=== PATIENT | male | born 1955 | race Caucasian/White ===

== ENCOUNTER → 2017-05-05 19:07 | Outpatient (CLI) | payer OTHER, SELFPAY ==
[2017-05-05 19:37] LABS: Ferritin 212 ng/mL (26-388); Iron 103 ug/dL (65-175)
== END ==
PROVIDERS: Family Provider Family Medicine; PCP Family Medicine; Visit Provider Family Medicine
DX: D64.9 Anemia, unspecified (principal)
CPT/HCPCS: 82728; 83540

== ENCOUNTER → 2017-09-11 09:47 | Outpatient (CLI) | payer OTHER, SELFPAY ==
--- NOTE | 2017-09-11 09:56 | RAD_ITS ---
STUDY: X-RAY - RIGHT ANKLE REASON FOR EXAM: Male, 62 years old. Pain TECHNIQUE: Three view(s) of the ankle were obtained. COMPARISON: None. FINDINGS: Bones: There are no acute osseous abnormalities. Joints: The visualized joints are unremarkable. Soft tissues: There is minimal soft tissue swelling medially. There is a small round calcification in the soft tissues adjacent to the medial malleolus. RAD/Ankle min 3 Views IMPRESSION: No acute abnormalities are seen. There is a small round calcification in the soft tissues between the medial malleolus and talus. If this represents a small loose body in the joint, this can cause pain. Electronically Signed: Zoe Lundberg MD at 20:07 EDT Tel Direct: [phone], Service support ,
== END ==
PROVIDERS: Family Provider Family Medicine; PCP Family Medicine; Visit Provider Family Medicine
DX: M25.571 Pain in right ankle and joints of right foot (principal)
CPT/HCPCS: 73610

== ENCOUNTER → 2017-10-08 06:39 | Outpatient (CLI) | payer OTHER, SELFPAY ==
--- NOTE | 2017-10-08 18:22 | STRESSREP_ITS ---
Stress Test Report Exercise myocardial perfusion stress test. 62-year-old man with a history of chest pain. Medications: Aspirin, atenolol, clopidogrel, lisinopril, metformin. Status post coronary artery stenting 2011. Stress protocol: Resting EKG demonstrates sinus bradycardia with a rate of 57 bpm normal intervals and noted resting blood pressure is 120/74 mmHg. The patient exercised according to regular Jorge protocol for a total duration of 9 minutes. Patient completed stage III of the Jorge protocol. The maximum heart rate attained was 141 bpm which was 89% of maximum predicted heart rate the maximum workload was 10.1 metabolic equivalents. At rest there were no ST or T- wave changes noted suggest ischemia peak exercise upsloping ST changes only were noted with no meet the criteria for ischemia. No clinical angina was noted. Resting blood pressure is 120/74 with a peak blood pressure 184/70 mmHg rate pressure product was 25,900. Myocardial perfusion protocol. 14.7 mCi of technetium 99m sestamibi was injected at rest. The patient exercised according to regular Jorge protocol for 9 minutes attaining 89% of maximum predicted heart rate and a workload of 10.1 metabolic equivalents. At peak exercise 44.6 mCi of technetium 99m sestamibi was injected stress images were obtained stress and rest images were reconstructed and compared in the short axis vertical long and horizontal long axis. Gated images were also obtained pre- Perfusion SPECT analysis: Review of the stress images demonstrate normal uptake of tracer noted in all areas of the myocardium. The resting images similarly demonstrate normal uptake of tracer noted in all areas of the myocardium. No areas of reversibility are noted suggest ischemia and no previous infarct is noted. Gated SPECT analysis: The gated ejection fraction is 59%. Conclusion: Normal exercise myocardial perfusion stress test at a high workload. No clinical angina noted Preserved ejection fraction.
== END ==
PROVIDERS: Family Provider Family Medicine; PCP Family Medicine; Visit Provider Nurse Practitioner Family
DX: R07.9 Chest pain, unspecified (principal); I25.10 Atherosclerotic heart disease of native coronary artery without angina pectoris; Z98.61 Coronary angioplasty status; I10 Essential (primary) hypertension; E78.00 Pure hypercholesterolemia, unspecified
CPT/HCPCS: 78452; 93017; A9500; A4216

== ENCOUNTER → 2018-07-31 | Outpatient (CLI) | payer OTHER, SELFPAY ==
[2018-02-12 08:59] VITALS: BMI 36.3
--- NOTE | 2018-07-31 10:33 | RAD_ITS ---
STUDY: X-RAY CHEST REASON FOR EXAM: Male, 63 years old. Cough TECHNIQUE: PA and lateral views of the chest COMPARISON: X-Ray Chest February 28, 2012 FINDINGS: The lungs are clear. There are no pleural effusions. There is no pneumothorax. The heart is normal in size. The visualized osseous structures are within normal limits. RAD/Chest PA and Lateral IMPRESSION: No acute thoracic pathology. Electronically Signed: Vishnu Keith, at 20:06 EDT Tel , Service support ,
== END | disposition home or self-care (01) ==
LOC: RAD 10:28
PROVIDERS: Family Provider Family Medicine; PCP Family Medicine; Referring Provider Family Medicine; Visit Provider Family Medicine
DX: R05 Cough (principal)
CPT/HCPCS: 71046

== ENCOUNTER → 2018-10-22 | Outpatient (CLI) | payer OTHER, SELFPAY ==
[2018-02-12 08:59] VITALS: BMI 36.3
== END | disposition home or self-care (01) ==
LOC: SL 20:35
PROVIDERS: Family Provider Family Medicine; PCP Family Medicine; Referring Provider Nurse Practitioner Family; Visit Provider Nurse Practitioner Family
DX: G47.33 Obstructive sleep apnea (adult) (pediatric) (principal)
CPT/HCPCS: 95811

== ENCOUNTER → 2019-05-17 14:32 | Outpatient (CLI) | payer MEDICARE, OTHER, SELFPAY ==
[2019-03-09 08:19] VITALS: BMI 35.9
[2019-05-17 17:48] LABS: Absolute Lymphocyte Count 2.09 X10^3/uL (0.83-4.51); Absolute Neutrophil Count 4.8 X10^3/uL (2.0-7.7); Basophil# 0.03 X10^3/uL; Basophil% 0.4 % (0-1); Eosinophils% 1.3 % (0-5); Hemoglobin 12.8 g/dL (13.0-16.5); Lymphocyte # 2.09 X10^3/ul (4.0); Mean Corp Hgb Conc 32.8 g/dL (32-36); Mean Corpuscular Hgb 30.1 pg (27.0-32.0); Mean Corpuscular Volume 91.8 fL (80-94); Mean Platelet Vol. 11.3 fl (6.2-12.0); Monocyte# 0.64 X10^3/uL; Monocyte% 8.3 % (0-10); NRBC Flagged by Analyzer 0 % (0-5); Neutrophil # 4.84 X10^3/uL (2.7-7.7); Neutrophil % 62.5 % (47-70); Platelet Count 173 K/mm3 (150-450); RBC Distribution Width CV 13.9 % (11.6-14.6); RBC Distribution Width SD 46.7 fl (35.1-43.9); Red Blood Count 4.25 M/mm3 (4.6-6.2); White Blood Count 7.7 K/mm3 (4.4-11.0)
[2019-05-17 18:14] LABS: ALB/GLOB Ratio 1.1 RATIO (0.9-2.4); AST(SGOT) 15 U/L (15-37); Alanine Aminotransfer ALT/SGPT 28 U/L (16-61); Albumin, Serum 3.9 g/dL (3.2-5.0); Alkaline Phosphatase 55 U/L (45-117); Anion Gap 5 (5-15); BUN 17 mg/dL (7-18); BUN/Creat Ratio 16.8 RATIO (10-20); Calcium,Total 8.8 mg/dL (8.5-10.1); Chloride 106 mmol/L (98-107); Creatinine, Serum 1.01 mg/dL (0.70-1.30); EST Glomerular Filtration Rate 79 mL/min (>60); Est Glom Filt Rate - Afr Amer 95 mL/min (>60); Globulin 3.6 g/dL (2.2-4.2); Glucose 157 mg/dL (74-106); Protein, Total 7.5 g/dL (6.4-8.2); Sodium Level 142 mmol/L (136-145); Thyroid Stim Hormone (TSH) 1.01 uIU/mL (0.358-3.74)
== END ==
PROVIDERS: PCP Family Medicine; Visit Provider Family Medicine
DX: E11.9 Type 2 diabetes mellitus without complications (principal); I10 Essential (primary) hypertension; E78.5 Hyperlipidemia, unspecified
CPT/HCPCS: 36415; 80053; 84443; 85025

== ENCOUNTER → 2020-02-17 10:08 | Outpatient (CLI) | payer MEDICARE, OTHER, SELFPAY ==
[2020-02-17 08:21] VITALS: BMI 35.4
[2020-02-17 10:48] LABS: Cholesterol 99 mg/dL (200); High Density Lipoprotein 31 mg/dL; Triglycerides 241 mg/dL; Very Low Density Lipoprotein 48 mg/dL (5-40)
[2020-02-17 10:52] LABS: AST(SGOT) 16 U/L (15-37); Alanine Aminotransfer ALT/SGPT 33 U/L (16-61); Albumin, Serum 3.9 g/dL (3.2-5.0); Alkaline Phosphatase 63 U/L (45-117); Bilirubin, Direct 0.24 mg/dL (0.00-0.30); Globulin 3.5 g/dL (2.2-4.2); Protein, Total 7.4 g/dL (6.4-8.2)
== END ==
PROVIDERS: PCP Family Medicine; Visit Provider Internal Medicine Cardiovascular Disease
DX: E78.00 Pure hypercholesterolemia, unspecified (principal)
CPT/HCPCS: 36415; 80061; 80076

== ENCOUNTER → 2020-12-25 | Outpatient (CLI) | payer MEDICARE, OTHER, SELFPAY | END | disposition home or self-care (01) | PROVIDERS: PCP Family Medicine; Referring Provider Family Medicine; Visit Provider Family Medicine | DX: U07.1 COVID-19 (principal) | CPT/HCPCS: 87635; U0005; U0003 ==

== ENCOUNTER → 2021-02-28 07:30 | Outpatient (CLI) | payer MEDICARE, OTHER, SELFPAY ==
[2021-02-28 08:39] LABS: AST(SGOT) 17 U/L (15-37); Alanine Aminotransfer ALT/SGPT 34 U/L (16-61); Albumin, Serum 3.6 g/dL (3.2-5.0); Alkaline Phosphatase 65 U/L (45-117); Bilirubin, Direct 0.15 mg/dL (0.00-0.30); Cholesterol 102 mg/dL (200); Globulin 4.1 g/dL (2.2-4.2); High Density Lipoprotein 27 mg/dL; Protein, Total 7.7 g/dL (6.4-8.2); Triglycerides 217 mg/dL; Very Low Density Lipoprotein 43 mg/dL (5-40)
== END ==
PROVIDERS: PCP Family Medicine; Referring Provider Nurse Practitioner Gerontology; Visit Provider Nurse Practitioner Gerontology
DX: E78.00 Pure hypercholesterolemia, unspecified (principal)
CPT/HCPCS: 36415; 80061; 80076

== ENCOUNTER 2021-03-28 13:45 | Outpatient (CLI) | payer MEDICARE, OTHER, SELFPAY | END 2021-03-28 23:59 | disposition short-term general hospital (02) | LOC: LABSPEC 03-29 07:59 | PROVIDERS: PCP Family Medicine; Visit Provider Family Medicine | DX: R05.9 Cough, unspecified (principal); R06.7 Sneezing; R50.9 Fever, unspecified | CPT/HCPCS: 87635; U0003; U0005 ==

== ENCOUNTER 2021-04-30 10:37 | Outpatient (CLI) | payer MEDICARE, OTHER, SELFPAY ==
[2021-04-30 11:38] LABS: Anion Gap 7 (5-15); BUN 14 mg/dL (7-18); BUN/Creat Ratio 11.1 RATIO (10-20); Calcium,Total 8.8 mg/dL (8.5-10.1); Chloride 102 mmol/L (98-107); Creatinine, Serum 1.26 mg/dL (0.70-1.30); EST Glomerular Filtration Rate 61 mL/min (>60); Est Glom Filt Rate - Afr Amer 73 mL/min (>60); Glucose 399 mg/dL (74-106); Sodium Level 135 mmol/L (136-145)
== END 2021-04-30 23:59 | disposition home or self-care (01) ==
LOC: LAB 10:41
PROVIDERS: PCP Family Medicine; Referring Provider Nurse Practitioner Gerontology; Visit Provider Nurse Practitioner Gerontology
DX: I10 Essential (primary) hypertension (principal)
CPT/HCPCS: 36415; 80048

== ENCOUNTER → 2022-01-30 | Outpatient (CLI) | payer MEDICARE, OTHER, SELFPAY ==
--- NOTE | 2022-01-30 15:45 | EKG12_ITS ---
Test Reason : PRE-SHOT Blood Pressure : / mmHG Vent. Rate : 062 BPM Atrial Rate : 062 BPM P-R Int : 160 ms QRS Dur : 084 ms QT Int : 394 ms P-R-T Axes : -06 073 061 degrees QTc Int : 399 ms Normal sinus rhythm Normal ECG Confirmed by MARIANNE SCHAFER, NEFTALI ([id number]), medical transcription editor HERVE GUAJARDO ([id number]) on 02/01/2022 11:08:21 AM Referred By: NICOLAS Confirmed By:NEFTALI LOPES MD
[2022-01-30 16:04] LABS: Absolute Lymphocyte Count 3.69 X10^3/uL (0.83-4.51); Absolute Neutrophil Count 4.5 X10^3/uL (2.0-7.7); Basophil# 0.05 X10^3/uL; Basophil% 0.6 % (0-1); Eosinophil# 0.11 X10^3/uL; Eosinophils% 1.2 % (0-5); Hematocrit 41.2 % (40-54); Hemoglobin 14.4 g/dL (13.0-16.5); Lymphocyte # 3.69 X10^3/ul (0.83-4.51); Lymphocyte % 41.3 % (19-41); Mean Corpuscular Hgb 31.6 pg (27.0-32.0); Mean Corpuscular Volume 90.4 fL (80-94); Mean Platelet Vol. 10.5 fl (6.2-12.0); Monocyte# 0.56 X10^3/uL; Monocyte% 6.3 % (0-10); NRBC Flagged by Analyzer 0 % (0-5); Neutrophil # 4.46 X10^3/uL (2.7-7.7); Neutrophil % 49.9 % (47-70); Platelet Count 212 K/mm3 (150-450); RBC Distribution Width CV 13.1 % (11.6-14.6); RBC Distribution Width SD 42.7 fl (35.1-43.9); Red Blood Count 4.56 M/mm3 (4.6-6.2); White Blood Count 8.9 K/mm3 (4.4-11.0)
[2022-01-30 16:58] LABS: Anion Gap 8 (5-15); BUN 21 mg/dL (7-18); BUN/Creat Ratio 15.9 RATIO (10-20); Chloride 104 mmol/L (98-107); Creatinine, Serum 1.32 mg/dL (0.70-1.30); EST Glomerular Filtration Rate 57 mL/min (>60); Est Glom Filt Rate - Afr Amer 69 mL/min (>60); Glucose 279 mg/dL (74-106); Potassium 4.1 mmol/L (3.5-5.1); Sodium Level 139 mmol/L (136-145)
[2022-01-30 17:25] LABS: Hemoglobin A1c 10.2 % (3.8-5.6)
== END | disposition home or self-care (01) ==
LOC: PSN 15:23
PROVIDERS: PCP Family Medicine; Visit Provider Physician Assistant
DX: Z01.818 Encounter for other preprocedural examination (principal); Z01.810 Encounter for preprocedural cardiovascular examination
CPT/HCPCS: 36415; 80048; 83036; 85025; 93005

== ENCOUNTER → 2022-05-02 | Outpatient (CLI) | payer MEDICARE, OTHER, SELFPAY ==
[2022-05-02 11:44] LABS: Hemoglobin A1c 9.5 % (3.8-5.6)
[2022-05-02 11:57] LABS: AST(SGOT) 19 U/L (15-37); Alanine Aminotransfer ALT/SGPT 34 U/L (16-61); Albumin, Serum 3.9 g/dL (3.2-5.0); Alkaline Phosphatase 66 U/L (45-117); Bilirubin, Direct 0.15 mg/dL (0.00-0.30); Cholesterol 130 mg/dL (200); Globulin 4.1 g/dL (2.2-4.2); High Density Lipoprotein 32 mg/dL; Triglycerides 529 mg/dL
== END | disposition home or self-care (01) ==
LOC: LAB 11:11
PROVIDERS: PCP Family Medicine; Visit Provider Internal Medicine Cardiovascular Disease
DX: E11.9 Type 2 diabetes mellitus without complications (principal); E78.00 Pure hypercholesterolemia, unspecified
CPT/HCPCS: 36415; 80061; 80076; 83036

== ENCOUNTER → 2022-07-12 | Outpatient (CLI) | payer MEDICARE, OTHER, SELFPAY ==
[2022-07-12 12:27] LABS: Hemoglobin A1c 9.5 % (3.8-5.6)
[2022-07-12 12:39] LABS: Anion Gap 8 (5-15); BUN 16 mg/dL (7-18); Calcium,Total 8.5 mg/dL (8.5-10.1); Chloride 104 mmol/L (98-107); Creatinine, Serum 1.07 mg/dL (0.70-1.30); EST Glomerular Filtration Rate 73 mL/min (>60); Est Glom Filt Rate - Afr Amer 88 mL/min (>60); Glucose 300 mg/dL (74-106); Potassium 4.1 mmol/L (3.5-5.1); Sodium Level 138 mmol/L (136-145); Thyroid Stim Hormone (TSH) 1.57 uIU/mL (0.358-3.74)
[2022-07-12 15:22] LABS: PSA,Total - Annual Screen 3.56 ng/mL (0.00-4.00)
[2022-07-13 04:07] LABS: LDL, Direct 120295 55 mg/dL (0-99)
== END | disposition home or self-care (01) ==
LOC: LAB 10:51
PROVIDERS: PCP Family Medicine; Referring Provider Family Medicine; Visit Provider Family Medicine
DX: I25.10 Atherosclerotic heart disease of native coronary artery without angina pectoris (principal); E11.9 Type 2 diabetes mellitus without complications; E78.5 Hyperlipidemia, unspecified; Z12.5 Encounter for screening for malignant neoplasm of prostate
CPT/HCPCS: 36415; 80048; 83036; 83721; 84153; 84443; G0103

== ENCOUNTER → 2023-05-28 | Outpatient (CLI) | payer MEDICARE, OTHER, SELFPAY ==
[2023-05-28 10:12] LABS: AST(SGOT) 19 U/L (15-37); Alanine Aminotransfer ALT/SGPT 23 U/L (16-61); Albumin, Serum 3.8 g/dL (3.2-5.0); Alkaline Phosphatase 52 U/L (45-117); Bilirubin, Direct 0.18 mg/dL (0.00-0.30); Cholesterol 127 mg/dL (200); Globulin 4.3 g/dL (2.2-4.2); High Density Lipoprotein 31 mg/dL; Protein, Total 8.1 g/dL (6.4-8.2); Triglycerides 213 mg/dL; Very Low Density Lipoprotein 43 mg/dL (5-40)
--- NOTE | 2023-05-28 12:37 | STRESSREP_ITS ---
Stress Test Report Exercise myocardial perfusion stress test. 68-year-old male with a history of coronary disease Stress protocol: Resting EKG demonstrates sinus bradycardia with a rate of 53 bpm resting blood pressure is 120/70 mmHg. The patient exercised according to the regular Jorge protocol for a total duration of 7 minutes and 40 seconds attaining a maximum heart rate of 121 bpm which was 80% of maximum predicted heart rate; the maximum workload was 10.1 metabolic equivalents. At rest there were no ST or T wave changes noted to suggest ischemia and at peak exercise upsloping ST changes only were noted which did not meet the criteria for ischemia. No clinical angina was noted the test was terminated due to the target heart rate being achieved/ fatigue. The peak blood pressure was 170/64 mmHg. Rate-pressure product was 17,000. Myocardial perfusion protocol. 15.0 mCi of technetium 99m sestamibi was injected at rest. The patient exercised according to regular Jorge protocol for total duration of 7 minutes and 46 and at peak exercise 45 mCi of technetium 99m sestamibi was injected stress images were obtained stress and rest images were reconstructed in comparing the short axis vertical long and horizontal long axis. Gated images were also obtained. Perfusion SPECT analysis: Review of the stress images demonstrate normal uptake of tracer noted in all areas of the myocardium. The resting images similarly demonstrate normal uptake of tracer noted in all areas of the myocardium. No areas of reversibility are noted to suggest ischemia no previous infarct was noted. Gated SPECT analysis: The gated ejection fraction is 59%. Conclusion: Normal exercise myocardial perfusion stress test at a high workload Preserved ejection fraction.
== END | disposition home or self-care (01) ==
PROVIDERS: PCP Family Medicine; Referring Provider Nurse Practitioner Gerontology; Visit Provider Nurse Practitioner Gerontology
DX: E78.00 Pure hypercholesterolemia, unspecified (principal); I25.10 Atherosclerotic heart disease of native coronary artery without angina pectoris
CPT/HCPCS: 36415; 78452; 80061; 80076; 93017; A9500

== ENCOUNTER → 2023-07-18 | Outpatient (CLI) | payer MEDICARE, OTHER, SELFPAY ==
[2023-07-18 12:53] LABS: Absolute Lymphocyte Count 4.17 X10^3/uL (0.83-4.51); Absolute Neutrophil Count 4.6 X10^3/uL (2.0-7.7); Basophil# 0.04 X10^3/uL; Basophil% 0.4 % (0-1); Eosinophil# 0.11 X10^3/uL; Eosinophils% 1.1 % (0-5); Hematocrit 44.1 % (40-54); Hemoglobin 14.5 g/dL (13.0-16.5); Lymphocyte # 4.17 X10^3/ul (0.83-4.51); Lymphocyte % 43.3 % (19-41); Mean Corp Hgb Conc 32.9 g/dL (32-36); Mean Corpuscular Hgb 30.8 pg (27.0-32.0); Mean Corpuscular Volume 93.6 fL (80-94); Mean Platelet Vol. 10.8 fl (6.2-12.0); Monocyte# 0.68 X10^3/uL; Monocyte% 7.1 % (0-10); NRBC Flagged by Analyzer 0 % (0-5); Neutrophil # 4.59 X10^3/uL (2.7-7.7); Neutrophil % 47.7 % (47-70); Platelet Count 191 K/mm3 (150-450); RBC Distribution Width CV 13.3 % (11.6-14.6); Red Blood Count 4.71 M/mm3 (4.6-6.2); White Blood Count 9.6 K/mm3 (4.4-11.0)
[2023-07-18 13:29] LABS: Hemoglobin A1c 7.5 % (3.8-5.6)
[2023-07-18 13:58] LABS: Anion Gap 8 (5-15); BUN 18 mg/dL (7-18); BUN/Creat Ratio 19.8 RATIO (10-20); Calcium,Total 9.2 mg/dL (8.5-10.1); Chloride 107 mmol/L (98-107); Creatinine, Serum 0.91 mg/dL (0.70-1.30); EST Glomerular Filtration Rate 88 mL/min (>60); Est Glom Filt Rate - Afr Amer 106 mL/min (>60); Glucose 138 mg/dL (74-106); PSA,Total - Annual Screen 4.32 ng/mL (0.00-4.00); Potassium 4.2 mmol/L (3.5-5.1); Sodium Level 139 mmol/L (136-145)
[2023-07-18 14:06] LABS: Microalbumin,Random Urine 42.9 mg/L (NO RANGE EST.); Microalbumin:Creatinine Ratio 52.5 mg/g CRE (<30 mg/g CRE)
== END | disposition home or self-care (01) ==
LOC: BFHLAB 09:14
PROVIDERS: PCP Family Medicine; Referring Provider Family Medicine; Visit Provider Family Medicine
DX: Z12.5 Encounter for screening for malignant neoplasm of prostate (principal); E11.9 Type 2 diabetes mellitus without complications; I10 Essential (primary) hypertension; I25.10 Atherosclerotic heart disease of native coronary artery without angina pectoris
CPT/HCPCS: 36415; 80048; 82043; 82570; 83036; 84153; 85025; G0103

== ENCOUNTER → 2024-01-27 | Outpatient (CLI) | payer MEDICARE, OTHER, SELFPAY ==
[2024-01-27 17:56] LABS: PSA,Total- Diagnostic 3.93 ng/mL (0.0-4.0)
[2024-01-27 18:51] LABS: Hemoglobin A1c 8.1 % (3.8-5.6)
== END | disposition home or self-care (01) ==
LOC: BFHLAB 14:58
PROVIDERS: PCP Family Medicine; Referring Provider Family Medicine; Visit Provider Family Medicine
DX: E11.9 Type 2 diabetes mellitus without complications (principal); R97.20 Elevated prostate specific antigen [PSA]
CPT/HCPCS: 36415; 83036; 84153

== ENCOUNTER → 2024-02-17 | Outpatient (CLI) | payer MEDICARE, OTHER, SELFPAY ==
[2024-02-17 14:22] LABS: AST(SGOT) 16 U/L (15-37); Alanine Aminotransfer ALT/SGPT 28 U/L (16-61); Albumin, Serum 3.8 g/dL (3.2-5.0); Alkaline Phosphatase 55 U/L (45-117); Bilirubin, Direct 0.18 mg/dL (0.00-0.30); Cholesterol 108 mg/dL (200); Globulin 3.5 g/dL (2.2-4.2); High Density Lipoprotein 28 mg/dL; Protein, Total 7.3 g/dL (6.4-8.2); Triglycerides 199 mg/dL; Very Low Density Lipoprotein 40 mg/dL (5-40)
[2024-02-17 14:49] LABS: Hemoglobin A1c 8.1 % (3.8-5.6)
[2024-02-17 19:34] LABS: Microalbumin,Random Urine 19.2 mg/L (NO RANGE EST.); Microalbumin:Creatinine Ratio 51.5 mg/g CRE (<30 mg/g CRE)
== END | disposition home or self-care (01) ==
LOC: LAB 11:55
PROVIDERS: PCP Family Medicine; Referring Provider Internal Medicine Cardiovascular Disease; Visit Provider Internal Medicine Cardiovascular Disease
DX: E78.5 Hyperlipidemia, unspecified (principal); E11.9 Type 2 diabetes mellitus without complications
CPT/HCPCS: 36415; 80061; 80076; 82043; 82570; 83036

== ENCOUNTER → 2024-03-19 | Outpatient (CLI) | payer MEDICARE, OTHER, SELFPAY ==
--- NOTE | 2024-03-19 10:10 | ECHOD_ITS ---
Reason For Study: MURMUR Procedure This was a 2D Doppler, Color Flow transthoracic echocardiogram. Exam performed in department. Left Ventricle Normal LV size. Left ventricular systolic function is normal. The left ventricular ejection fraction is 60 %. No regional wall motion abnormalities noted. Right Ventricle Normal RV size. Normal systolic function. Atria Normal left atrium. Normal right atrium. Mitral Valve Normal mitral valve. Tricuspid Valve Normal tricuspid valve. Aortic Valve Trisinus/trileaflet aortic valve. Mild focal aortic valve calcification. Pulmonic Valve Normal pulmonic valve. Trivial pulmonic valve insufficiency. Great Vessels Normal aortic root. The pulmonary artery is normal size. Inferior vena cava collapse with respiration. Pericardium/Pleural No pericardial effusion. MMode/2D Measurements & Calculations LVIDd: 4.5 cm IVSd: 1.1 cm LVOT diam: 2.2 cm LVIDs: 3.0 cm LVPWd: 1.1 cm LVOT area: 3.8 cm2 RVDd: 4.4 cm FS: 32.5 % asc Aorta Diam: 3.3 cm LAV(MOD-bp): 49.5 ml LVAd ap4: 27.7 cm2 LAV(MOD-bp) Indexed: 22.6 ml/m2 LVLd ap4: 8.4 cm LAV(MOD-sp2): 56.4 ml EDV(MOD-sp4): 74.9 ml LAV(MOD-sp4): 37.2 ml EDV(sp4-el): 77.9 ml LVAs ap4: 16.1 cm2 LVLs ap4: 6.9 cm ESV(MOD-sp4): 31.0 ml ESV(sp4-el): 31.6 ml EF(MOD-sp4): 58.6 % EF(sp4-el): 59.4 % LVAd ap2: 29.5 cm2 SV(MOD-sp4): 43.9 ml SV(MOD-sp2): 54.0 ml LVLd ap2: 8.3 cm SI(MOD-sp4): 20.0 ml/m2 SI(MOD-sp2): 24.6 ml/m2 EDV(MOD-sp2): 86.5 ml EDV(sp2-el): 89.1 ml LVAs ap2: 16.8 cm2 LVLs ap2: 7.2 cm ESV(MOD-sp2): 32.5 ml ESV(sp2-el): 33.3 ml EF(MOD-sp2): 62.4 % SV(sp4-el): 46.3 ml Ao sinus diam: 3.[address] Junction: 3.0 cm LA dimension(2D): 3.8 cm LA A4 area: 15.2 cm2 RA A4 area: 18.1 cm2 TAPSE: 2.0 cm Time Measurements MV dec time: 0.21 sec Doppler Measurements & Calculations MV E max edward: 78.8 cm/sec Lat Peak E' Edward: 11.0 cm/sec Med Peak E' Edward: 8.6 cm/sec MV A max edward: 65.5 cm/sec E/E' lat: 7.2 E/E' med: 9.1 MV E/A: 1.2 MV dec slope: 369.0 cm/sec2 Ao V2 max: 222.8 cm/sec LV V1 max: 111.0 cm/sec Ao max P.9 mmHg LV V1 max P.9 mmHg Ao V2 mean: 159.0 cm/sec LV V1 mean P.8 mmHg Ao mean P.3 mmHg LV V1 mean: 78.2 cm/sec Ao V2 VTI: 51.8 cm LV V1 VTI: 27.6 cm AV (velocity ratio): 0.53 RENEA(I,D): 2.0 cm2 RENEA(V,D): 1.9 cm2 SV(LVOT): 105.2 ml PA V2 max: 118.4 cm/sec TR max edward: 212.5 cm/sec TR max P.1 mmHg ECHO/Echo Complete Interpretation Summary Normal LV size. Left ventricular systolic function is normal. The left ventricular ejection fraction is 60 %. Mild focal aortic valve calcification. Trisinus/trileaflet aortic valve. Ordering Physician: Alton Aleman Referring Physician: Marlo Ulloa Performed By: Nisha Kessler RDCS
--- NOTE | 2024-03-19 10:13 | CDU_ITS ---
Reason For Study: Carotid Bruits Rt. Velocities/BP Lt. Velocities/BP Prox CCA 76/10 cm/sec. Prox CCA 82/12 cm/sec. Mid CCA 80/13 cm/sec. Mid CCA 89/14 cm/sec. Dist CCA 67/13 cm/sec. Dist CCA 80/14 cm/sec. Prox ICA 55/10 cm/sec. Prox ICA 72/14 cm/sec. Mid ICA 59/15 cm/sec. Mid ICA 57/13 cm/sec. Dist ICA 66/17 cm/sec. Dist ICA 71/18 cm/sec. Rt. ICA/CCA = 0.8. Lt. ICA/CCA = 0.8. Prox ECA 102/13 cm/sec. Prox ECA 98/11 cm/sec. Rt. Vert. 56/9 cm/sec. Lt. Vert. 38/10 cm/sec. Right Extracranial There is intimal thickening but no significant atherosclerotic plaque noted in the right common carotid artery. There is intimal thickening but no significant atherosclerotic plaque noted in the right internal carotid artery. There is intimal thickening but no significant atherosclerotic plaque noted in the right external carotid artery. Antegrade flow is noted in the right vertebral artery. Left Extracranial There is intimal thickening but no significant atherosclerotic plaque noted in the left common carotid artery. There is intimal thickening but no significant atherosclerotic plaque noted in the left internal carotid artery. There is no significant atherosclerotic plaque noted in the left external carotid artery. Antegrade flow is noted in the left vertebral artery. Non vascular, hypoechoic structures noted Lt neck. Procedure Carotid Duplex [id number]. This is a Carotid Duplex examination using B-mode, color flow and specral Doppler. Exam performed in department. VL/Carotid Duplex Ultrasound Interpretation Summary No significant atherosclerotic plaque or stenosis noted in the internal carotid arteries bilaterally. Flow within the vertebral arteries is antegrade bilaterally. Non-v ascular, hypoechoic structures are noted in the left neck, for which clinical correlation is advise d. Ordering Physician: CAMERON SPRINGER Referring Physician: Marlo Ulloa Performed By: Eun Hancock, DEV, RVT
== END | disposition home or self-care (01) ==
LOC: CVS 10:08
PROVIDERS: PCP Family Medicine; Referring Provider Psychiatry & Neurology Neurology; Visit Provider Internal Medicine Cardiovascular Disease
DX: R09.89 Other specified symptoms and signs involving the circulatory and respiratory systems (principal); I35.0 Nonrheumatic aortic (valve) stenosis; R01.1 Cardiac murmur, unspecified
CPT/HCPCS: 93306; 93880

== ENCOUNTER 2024-10-25 09:21 | Emergency (ER) | payer MEDICARE, OTHER, SELFPAY ==
[2024-10-25 09:22] VITALS: BP 146/72; PULSE 50; RESP 18; TEMP 36.7; O2SAT 98
--- NOTE | 2024-10-25 09:48 | VDLE_ITS ---
Reason For Study Reason For Study: Left leg pain RIGHT LEFT CFV is compressible, spontaneous, phasic, competent GSV is normal. and demonstrates normal augmentation. CFV is compressible, spontaneous, phasic, competent, Procedure and demonstrates normal augmentation. This is a venous duplex using B-mode, color flow and FV is compressible, spontaneous, phasic, competent spectral Doppler. and demonstrates normal augmentation. Exam performed portable in ED. POP V is compressible, spontaneous, phasic, competent A preliminary report was called and/or faxed to and demonstrates normal augmentation. Steven. T/P Trunk is compressible. PTV is compressible. LT PerV is compressible. VL/Venous Duplex US, Unilateral Interpretation Summary Deep veins of the left lower extremity are patent and compressible segmentally. There is no evidence of left lower extremity deep vein thrombosis. Valvular competence appears intact within the p roximal deep venous system on the left . The left great saphenous vein appears patent and compressible segmentally. The right common femoral vein is patent and compressible . Ordering Physician: Carmen Harris Referring Physician: Marlo Ulloa Performed By: Rozina Lincoln RVT
[2024-10-25] MEDS: Ketorolac 30 MG/ML Syringe IM (10:09)
[2024-10-25 11:05] VITALS: BP 138/77; PULSE 54; RESP 16; TEMP 36.8; O2SAT 99
--- NOTE | 2024-10-25 16:12 | ED.VIS.LOWEX ---
HPI History of Present Illness HPI Narrative: Patient is a 69-year-old male presenting emergency department for left leg pain. Patient states that he drove to [place] about 2 weeks ago and before this was having no left leg pain. States that a few days after arriving there he developed pain behind his left knee. He does not report new trauma or injuries to it. He has never had issues with the knee before. States that since then the pain has continued to worsen. He is concerned about a possible blood clot. Denies any history of DVT or PE. 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 myocardial infarction Home Medications ?Medication ?Instructions ?Recorded ?Last Taken ?Type aspirin 81 mg tablet,delayed 81 mg PO QDAY 04/10/17 Unknown History release (Adult Low Dose Aspirin) glimepiride 4 mg tablet 4 mg PO BID 04/10/17 Unknown History tamsulosin 0.4 mg capsule (Flomax) 0.4 mg PO QDAY 04/10/17 Unknown History vit C 250 mg-vit E 90 mg-zinc 40 1 tab PO BID 04/10/17 Unknown History mg-copper 1 [id number] capsule (PreserVision AREDS-2) atorvastatin 40 mg tablet 40 mg PO QHS #90 tabs 03/26/21 Unknown Rx metformin 1,000 mg tablet 1,000 mg PO BID 05/01/23 Unknown History losartan 50 mg tablet 50 mg PO BID #180 tabs 11/14/23 Unknown Rx empagliflozin 25 mg tablet 25 mg PO DAILY #90 tabs 02/26/24 Unknown Rx atenolol 50 mg tablet See Rx Instructions .Route 03/17/24 Unknown Rx .COMPLEX #90 tabs clopidogrel 75 mg tablet See Rx Instructions .Route 03/17/24 Unknown Rx .COMPLEX #90 tabs dapagliflozin propanediol 10 mg 10 mg PO DAILY #30 tabs 09/13/24 Unknown Rx tablet (Farxiga) amlodipine 5 mg tablet 5 mg PO DAILY 10/25/24 Unknown History insulin glargine 100 unit/mL (3 20 unit subcut DAILY 10/25/24 Unknown History mL) subcutaneous pen (Basaglar KwikPen U-100 Insulin) Allergy/AdvReac Type Severity Reaction Status Date / Time lisinopril AdvReac cough Verified 10/25/24 09:22 Family History Mother CAD (coronary artery disease) hx cardiac stents CVA (cerebral vascular accident) Diabetes Hypertension Father Heart disease Hcx CABG x4 Renal failure Diabetes HLD (hyperlipidemia) Hypertension Surgical History History of coronary artery stent placement (02/29/12) History of left heart catheterization (LHC) Social History Smoking Status: Former smoker alcohol intake: current alcohol intake frequency: holidays/special occasions only Alcohol type: hard liquor substance use type: does not use caffeine: Yes Type: coffee what type of physical activity do you participate in: none seatbelt use: always do you feel safe at home: Yes ROS ROS ED ROS Narrative See HPI EXAM Physical Exam Narrative Exam Narrative: Vital signs: Reviewed General: Alert and oriented. No acute distress HEENT: Head is normocephalic and atraumatic, sinuses nontender, pupils equal round and reactive. Nares are patent. Oropharynx and throat exams normal. Neck: Supple without lymphadenopathy nontender Cardiovascular: Regular rate and rhythm, no murmurs. No rubs or gallops. Normal S1 and S2 Respiratory: Clear to auscultation bilaterally. No wheezes, rales, rhonchi Abdominal: Soft and nontender. Normal bowel sounds. No guarding or rebound. Nonsurgical abdomen Extremities: There are some mild tenderness to palpation on the left lateral knee. There is no swelling or erythema of the foot calf or knee. No erythema around the knee joint or swelling to the knee joint. DP and PT pulses intact. Sensation intact. Motor slightly limited due to pain. Skin: No rash or redness. Neurological: Cranial nerves II through XII are grossly intact. Normal strength and sensation. Normal cerebellar function The rest of the physical exam is unremarkable Const Vital Signs: 10/25/24 09:22 10/25/24 11:05 Temperature 98.0 F 98.3 F Temperature Source Oral Pulse Rate 50 L 54 L Respiratory Rate 18 16 Blood Pressure 146/72 H 138/77 H Blood Pressure Mean 96 97 Pulse Ox 98 99 Oxygen Delivery Method Room Air MDM MDM MDM Narrative Medical decision making narrative: Patient is a 69-year-old male presenting to the emergency department for left leg pain. Patient was seen and examined. Vitals are stable. Patient resting in bed comfortably no acute distress. With no injuries or falls to the knee I do not suspect any fractures as the cause of the pain, x-ray was not ordered for this reason. He has no significant swelling, erythema or warmth to the joint to suspect a septic joint. DVT study was ordered and was negative for any DVT or thrombophlebitis. There is no evidence of cellulitis or any abscess on exam of the leg. Suspect likely ligamentous injury/sprain. Updated the patient and on the findings. [place] wrap was applied for comfort. Crutches ordered to help patient ambulate. Patient discharged from the Emergency Department. I do not feel that the patient's evaluation reveals any acute reason for admission at this time. I instructed them to either follow-up with their primary care physician or promptly return to the Emergency Department for reevaluation should symptoms worsen or new symptoms develop. I explained what symptoms would indicate the need to return to the emergency department. Shared decision making was used. The patient voiced understanding of the treatment plan and is agreeable with it. Clinical impression Left knee sprain Radiography Diagnostic Testing: Clinical Impression(s) from Imaging Studies Venous Doppler Study 10/25/24 09:48 Interpretation Summary Deep veins of the left lower extremity are patent and compressible segmentally. There is no evidence of left lower extremity deep vein thrombosis. Valvular competence appears intact within the proximal deep venous system on the left . The left great saphenous vein appears patent and compressible segmentally. The right common femoral vein is patent and compressible . Ordering Physician: Carmen Harris Referring Physician: Marlo Ulloa Performed By: Rozina Lincoln RVT Discharge Plan Triage Chief Complaint: Lower Extremity Injury ED Provider: Carmen Harris Dx/Rx/DC Orders Clinical Impression: Knee sprain Instructions: Self-Care for Strains and Sprains, ED Knee Sprain, ED Knee Sprain Ligaments Prescriptions: No Action metformin 1,000 mg tablet 1,000 mg PO BID Patient Comments: TAKE 1 TABLET BY MOUTH TWICE A DAY amlodipine 5 mg tablet 5 mg PO DAILY insulin glargine [Basaglar KwikPen U-100 Insulin] 100 unit/mL (3 mL) insulin pen 20 unit subcut DAILY aspirin [Adult Low Dose Aspirin] 81 mg tablet,delayed release (DR/EC) 81 mg PO QDAY tamsulosin [Flomax] 0.4 mg capsule,extended release 24hr 0.4 mg PO QDAY glimepiride 4 mg tablet 4 mg PO BID vit C,V-Wv-ekyjt-lutein-zeaxan [PreserVision AREDS-2] [id number] af-ttza-ex-mg capsule 1 tab PO BID atorvastatin 40 mg tablet 40 mg PO QHS Qty: 90 3RF losartan 50 mg tablet 50 mg PO BID Qty: 180 3RF empagliflozin 25 mg tablet 25 mg PO DAILY Qty: 90 3RF clopidogrel 75 mg tablet See Rx Instructions .ROUTE .COMPLEX Qty: 90 3RF Dose Instruction: TAKE 1 TABLET BY MOUTH EVERY DAY Rx Instructions: TAKE 1 TABLET BY MOUTH EVERY DAY atenolol 50 mg tablet See Rx Instructions .ROUTE .COMPLEX Qty: 90 3RF Dose Instruction: TAKE 1 TABLET BY MOUTH EVERY DAY Rx Instructions: TAKE 1 TABLET BY MOUTH EVERY DAY dapagliflozin propanediol [Farxiga] 10 mg tablet 10 mg PO DAILY Qty: 30 11RF Rx Instructions: Check gamez Primary Care Provider: Marlo Ulloa Referrals: Your orthopedist [Other] - 3-5 Days Marlo Ulloa DO [Primary Care Provider] - Activity Restrictions/Additional Instructions: Your evaluation in the Emergency Department did not reveal any acute reason for admission. However, I want to emphasize that you may be early in the course of a disease process or illness even if it is not present. For this reason you should follow-up within 24 hours for reevaluation with either your primary care physician or if necessary back here in the Emergency Department. You should return to the Emergency Department immediately if your symptoms worsen or new symptoms develop. Print Language: Yakut Disposition Disposition: Home, Self Care Discharge Date/Time: 10/25/24 11:06
== END 2024-10-25 11:06 | disposition home or self-care (01) ==
LOC: ED 10:35
PROVIDERS: Emergency Provider Student in an Organized Health Care Education/Training Program; PCP Family Medicine; Visit Provider Student in an Organized Health Care Education/Training Program
DX: I25.10 Atherosclerotic heart disease of native coronary artery without angina pectoris (principal); E11.9 Type 2 diabetes mellitus without complications; Z87.891 Personal history of nicotine dependence; I10 Essential (primary) hypertension; S83.92XA Sprain of unspecified site of left knee, initial encounter; E78.5 Hyperlipidemia, unspecified; I25.2 Old myocardial infarction; Z79.82 Long term (current) use of aspirin; Z79.899 Other long term (current) drug therapy; Z79.84 Long term (current) use of oral hypoglycemic drugs; Z79.02 Long term (current) use of antithrombotics/antiplatelets; Z95.5 Presence of coronary angioplasty implant and graft; M79.605 Pain in left leg
CPT/HCPCS: 93971; 96372; 99283